=== PATIENT | male | born 1950 | race Caucasian/White ===

== ENCOUNTER 2018-08-31 06:34 | Day surgery (SDC) | payer BC ==
--- NOTE | 2018-08-24 21:14 | P.GSHP ---
History of Present Illness H&P Date: 08/24/18 Chief Complaint: Left renal calculus The patient is a 52-year-old male who developed the onset of left flank and left upper quadrant pain on . The pain was rated as a 10 out of 10 and was associated with nausea. There was no gross hematuria. He was evaluated in the [facility] emergency room. CT scan of the abdomen and pelvis without IV contrast identified a 7 x 11 mm calculus at the left ureteropelvic junction. A 7 x 8 mm calculus was noted in the lower pole of the left kidney and 2 calculi measuring less than 2 mm in size were noted in the right kidney. The patient was started on Flomax and analgesics and his pain has been tolerable since then. He has no previous history or family history of urolithiasis. He has noted an improvement in his urine flow and reduction in his nocturia since he was started on the Flomax. He was evaluated by me on 08/21. I showed him his CT scan and discussed treatment options including observation, ESWL or ureteroscopy with lithotripsy. The patient wishes to proceed with ESWL and is admitted for this purpose. - Constitutional Constitutional: Denies chills, Denies fever - Cardiovascular Cardiovascular: Denies chest pain, Denies shortness of breath, Denies syncope - Respiratory Respiratory: Denies cough, Denies wheezing - Gastrointestinal Gastrointestinal: Reports as per HPI - Genitourinary (Female) Genitourinary: Reports as per HPI Past Medical History Past Medical History: No Reported History History of Any Multi-Drug Resistant Organisms: None Reported Past Surgical History: No Surgical Hx Reported Past Anesthesia/Blood Transfusion Reactions: No Reported Reaction Past Psychological History: No Psychological Hx Reported Smoking Status: Never smoker Medications and Allergies Home Medications and Allergies Comment(s): Aspirin 81 mg daily- last taken on 08/21/2018 Allergies Allergy/AdvReac Type Severity Reaction Status Date / Time No Known Allergies Allergy Verified 08/24/18 21:11 Surgical - Exam - General well developed, well nourished, no distress - ENT no hearing loss - Neck no masses, no lymphadectomy - Respiratory clear to auscultation - Cardiovascular Rhythm: regular Abnormal Heart Sounds: no systolic murmur, no diastolic murmur - Abdomen Abdomen: no soft, no organomegaly - Genitourinary normal penis with no external lesions, testicles non-tender - Rectum Rectum: normal sphincter tone, other (Prostate is 1-2+ enlarged and benign) Assessment and Plan (1) Renal calculus, left Narrative/Plan: The patient will undergo ESWL treatment of the left renal calculus performed by Dr. Mcclain under intravenous sedation. He is aware of the operative risks which include anesthesia, hematuria or intrarenal bleeding, inability to fragment the calculus and ureteral obstruction secondary to calculus fragments which may require a secondary procedure for treatment. Status: Acute Code(s): N20.0 - CALCULUS OF KIDNEY SNOMED Code(s): 33568477
[2018-08-26 12:31] VITALS: BMI 27.1
[~2018-08-31 06:34] MED LIST: LACTATED RINGERS 1,000 ML IV SCH
[2018-08-31 07:21] VITALS: RESP 16; TEMP 98.4
[2018-08-31] MEDS ORDERED: LIDOCAINE 1% 20 ML VIAL (10MG/ML) FOR IV START INTRADERMA ONE (07:23)
[2018-08-31] MEDS ORDERED: fentaNYL (PF) 50 MCG/ML 2 ML AMP IVP ONE (07:32)
[2018-08-31] MEDS ORDERED: LACTATED RINGERS 1,000 ML IV ONE (07:33)
[2018-08-31] MEDS ORDERED: PROPOFOL 10 MG/ML 20 ML VIAL IV ONE (08:21)
[2018-08-31] MEDS ORDERED: MIDAZOLAM 2 MG/2 ML VIAL ONE (08:21)
[2018-08-31] MEDS ORDERED: fentaNYL (PF) 50 MCG/ML 2 ML AMP ONE (08:21)
[2018-08-31] MEDS ORDERED: KETAMINE 10 MG/ML 20 ML VIAL ONE (08:21)
[2018-08-31] MEDS ORDERED: LIDOCAINE 1% INJ 10MG/ML (20 ML MDV) ONE (08:21)
--- NOTE | 2018-08-31 09:01 | P.OP ---
Date of Procedure: 08/31/18 Preoperative Diagnosis: Left renal stones Postoperative Diagnosis: Same Procedure(s) Performed: Extracorporeal shockwave lithotripsy, 2500 shocks at energy level IV Anesthesia: MAC Surgeon: Ruiz Mcclain Pathology: none sent Condition: stable Disposition: PACU Indications for Procedure: The patient is 68 with an 11 x 7 mm left UPJ stone a 7 x 8 mm left lower pole stone and comes for shockwave lithotripsy Description of Procedure: Patient brought operating suite he is given IV sedation. The UPJ stone is under 2 views of fluoroscopy. 2500 shocks at energy level IV administered. The stone eventually begins to fracture. It is quite of the stone. Then proceeded patient awake and returned recovery in good condition. He'll be discharged home upon recovery and found the office in one week with a KUB.
[2018-08-31 09:47] VITALS: BP 181/88; PULSE 70
--- NOTE | 2018-08-31 10:05 | XR ---
EXAMINATION TYPE: XR KUB DATE OF EXAM: 08/31/2018 CLINICAL DATA: 68-year-old male left kidney stone, preoperative evaluation, [facility] COMPARISON: None FINDINGS: Supine imaging limited for assessment of free intraperitoneal air. Nonobstructive bowel gas pattern. There are 2 small calcifications in the left mid abdomen measuring 1.1 cm and 0.8 cm. Additional roun d calcification in the left pelvis measuring 6 mm. IMPRESSION: 1. 2 calcifications left mid abdomen measuring 11 mm and 8 mm. 2. An additional 6 mm calcification in the left side of the pelvis which may represent a phlebolith
== END 2018-08-31 09:56 | disposition home or self-care (01) ==
LOC: ORWHC2ENDO 06:34
PROVIDERS: ATTEND Urology
DX: N20.2 Calculus of kidney with calculus of ureter (principal); Z84.1 Family history of disorders of kidney and ureter; Z79.82 Long term (current) use of aspirin
CPT/HCPCS: 74018; 50590; J2250; J2001; J3010; J2704

== ENCOUNTER → 2018-09-07 | Outpatient (CLI) | payer BC ==
--- NOTE | 2018-09-07 12:11 | XR ---
EXAMINATION TYPE: XR KUB DATE OF EXAM: 09/07/2018 10:03 AM CLINICAL HISTORY: Recent left-sided lithotripsy. Follow-up exam TECHNIQUE: Single supine KUB image of the abdomen is obtained. COMPARISON: 08/31/2018. FINDINGS: There remains a 6 mm rounded density within the left low pelvis likely relating to a phlebo lith. In the left mid abdomen there are 5 renal calculi. The most medial measures approximately 1.1 c m as seen on the prior but has changed in morphology. Within the region of the lower pole there are 3 radiopaque calculi measuring up tor 9 mm. Within the left mid pole region there is a 4 mm calculus. No dilated large or small bowel is seen. Lung apices are well aerated. Moderate amount of rectal stoo l is noted. Osseous structures are grossly intact with mild femoral acetabular arthropathy bilaterall y. IMPRESSION: 1. Change in morphology of the most medial left 1.1 cm calculus. This could be located in the renal p fozia and renal ultrasound could assess for hydronephrosis. 2. Additional nonobstructing left renal calculi as described above.
== END | disposition home or self-care (01) ==
LOC: RADXRMAIN 09:51
PROVIDERS: ATTEND Urology
DX: N20.0 Calculus of kidney (principal)
CPT/HCPCS: 74018